=== PATIENT | female | born 1995 | race Caucasian/White ===

== ENCOUNTER → 2024-01-03 18:19 | Outpatient (BNVA) | payer MEDICAID, SELFPAY | PROVIDERS: Visit Provider Nurse Practitioner | DX: R50.9 Fever, unspecified (principal) | CPT/HCPCS: 87426 ==

== ENCOUNTER → 2024-10-04 09:47 | Outpatient (BNVA) | payer OTHER, SELFPAY | PROVIDERS: PCP Family Medicine; Visit Provider Family Medicine | DX: Z13.6 Encounter for screening for cardiovascular disorders (principal); E88.819 Insulin resistance, unspecified; Z76.89 Persons encountering health services in other specified circumstances; Z91.09 Other allergy status, other than to drugs and biological substances; N94.6 Dysmenorrhea, unspecified | CPT/HCPCS: 85025 ==

== ENCOUNTER → 2024-10-08 08:46 | Outpatient (BNVA) | payer OTHER, SELFPAY | PROVIDERS: PCP Family Medicine; Visit Provider Family Medicine | DX: Z13.6 Encounter for screening for cardiovascular disorders (principal); E88.819 Insulin resistance, unspecified | CPT/HCPCS: 80053; 80061; 83525; 84443; 85025 ==

== ENCOUNTER 2024-10-14 14:18 | Outpatient (CLI) | payer OTHER, SELFPAY ==
--- NOTE | 2024-10-14 14:30 | US_ITS ---
WS: [id number] US transvaginal [id number] HISTORY: dysmenorrhea COMPARISON: None available. Uterus: 8.4 cm x 4.8 cm x 3.8 cm. Normal size retroverted uterus. No fibroid or mass identified. Endometrium: 0.5 cm. Normal size. Normal vascularity. Right ovary: Not visualized. No adnexal mass. Left ovary: 2.4 cm x 3.3 cm x 2.3 cm. Normal size and vascularity, no cystic or solid masses. No free fluid in the cul-de-sac. US/US transvaginal [id number] IMPRESSION: 1. Normal endometrium. 2. Retroverted uterus. No fibroid identified. 3. Unremarkable LEFT ovary. RIGHT ovary is not identified.
== END 2024-10-14 14:19 | disposition home or self-care (01) ==
LOC: RAD 14:21
PROVIDERS: PCP Family Medicine; Visit Provider Family Medicine
DX: N85.4 Malposition of uterus (principal); N94.6 Dysmenorrhea, unspecified
CPT/HCPCS: 76830